=== PATIENT | male | born 1940 | race Caucasian/White ===

== ENCOUNTER 2017-02-05 09:02 | Day surgery (SDC) | payer MEDICARE, BC ==
[~2017-02-05] VITALS: Ht 170.2 cm; Wt 81.8 kg
[2017-02-05] MEDS ORDERED: LACTATED RINGERS 1,000 ML IV SCH (09:28)
[2017-02-05] MEDS ORDERED: LIDOCAINE 1%, 2ML SQ PRN (09:30)
[2017-02-05] MEDS ORDERED: ASPI-496 PO (09:31)
[2017-02-05] MEDS ORDERED: MULT-257 PO (09:31)
[2017-02-05 09:42] VITALS: BP 146/92
[2017-02-05] MEDS ORDERED: FENTANYL PF 100 MCG/2ML ONE ×2 (10:51→11:37)
[2017-02-05] MEDS ORDERED: MIDAZOLAM 1 MG/ML, 2ML ONE (10:51)
[2017-02-05] MEDS ORDERED: METOPROLOL 1 MG/ML, 5ML ONE (10:51)
[2017-02-05] MEDS ORDERED: ONDANSETRON 2MG/ML, 2ML ONE (11:12)
[2017-02-05] MEDS ORDERED: ACETAMINOPHEN 325 MG TABLET PO PRN (11:30)
[2017-02-05] MEDS ORDERED: FENTANYL PF 100 MCG/2ML IV PRN (11:30)
[2017-02-05] MEDS ORDERED: OXYcodone 5 MG/5 ML ORAL.SOL UDC PO PRN (11:30)
[2017-02-05] MEDS ORDERED: HYDROmorphone 1 MG/ML, 1ML IV PRN (11:30)
[2017-02-05] MEDS ORDERED: MEPERIDINE/PF 25MG/0.5ML IVPush PRN (11:30)
[2017-02-05] MEDS ORDERED: KETOROLAC 30 MG/1 ML IV PRN (11:30)
[2017-02-05] MEDS ORDERED: SUCCINYLCHOLINE 20 MG/ML, 10ML ONE (11:35)
[2017-02-05] MEDS ORDERED: PROPOFOL 10 MG/ML, 20ML ONE (11:35)
[2017-02-05] MEDS ORDERED: DEXAMETHASONE 4 MG/ML, 1ML ONE ×2 (11:36)
== END 2017-02-05 13:15 ==
LOC: OUT 09:02
PROVIDERS: ATTEND Internal Medicine
DX: C15.9 Malignant neoplasm of esophagus, unspecified (principal); K31.9 Disease of stomach and duodenum, unspecified; Z86.010 Personal history of colon polyps; Z90.49 Acquired absence of other specified parts of digestive tract; Z98.890 Other specified postprocedural states
CPT/HCPCS: 43237; 93005; J0330; J1100; J2250; J2405; J2704; J3010; J7120